=== PATIENT | male | born 1995 | race Two or more races ===

== ENCOUNTER 2017-01-28 06:09 | Emergency (ER) | payer SELFPAY ==
[2017-01-28 07:27] VITALS: BP 153/87
== END 2017-01-28 07:27 | disposition home or self-care (01) ==
LOC: ED 06:09
DX: S01.01XA Laceration without foreign body of scalp, initial encounter (principal); V43.92XA Unspecified car occupant injured in collision with other type car in traffic accident, initial encounter; Y93.89 Activity, other specified; Y99.8 Other external cause status; Y92.89 Other specified places as the place of occurrence of the external cause
CPT/HCPCS: J2001